=== PATIENT | male | born 1980 | race Caucasian/White ===

== ENCOUNTER 2019-01-13 06:23 | Day surgery (SDC) | payer OTHER ==
[2019-01-13] MEDS: CEFAZOLIN 2 GM/50 ML (PMX) 50 ML IVPB (07:00)
[2019-01-13] MEDS: SOD CHLORIDE 0.9% 1,000 ML IV (08:03)
[2019-01-13] MEDS: ACETAMINOPHEN 500 MG TAB PO (08:03)
[2019-01-13 08:23] LABS: ADD MAN DIFF? NO
[2019-01-13] MEDS ORDERED: FAMOTIDINE 20 MG INJ (08:25)
[2019-01-13] MEDS ORDERED: CEFAZOLIN 1 GM INJ (08:25)
[2019-01-13] MEDS ORDERED: PROPOFOL 40 ML (08:25)
[2019-01-13] MEDS ORDERED: ONDANSETRON 4 MG INJ (08:25)
[2019-01-13] MEDS ORDERED: FENTAnyl 50 MCG/ML VIAL (08:25)
[2019-01-13] MEDS ORDERED: ROCURONIUM 50 MG INJ (08:25)
[2019-01-13] MEDS ORDERED: MIDAZOLAM 1 MG/ML 2 ML INJ (08:25)
[2019-01-13] MEDS ORDERED: LIDOCAINE 2% (SDV) 5 ML INJ (08:25)
[2019-01-13 08:26] LABS: WHITE BLOOD COUNT 5.2 10^3/ul (4.8-10.8)
[2019-01-13 08:26] LABS: BASOPHILS % 0.6 % (0.0-2.0); EOSINOPHILS # 0.1 10^3/ul (0.0-0.5); EOSINOPHILS % 1.2 % (0.0-7.0); HEMATOCRIT 38.5 % (42.0-52.0); HEMOGLOBIN 12.3 g/dl (14.0-18.0); LYMPHOCYTES # 1.3 10^3/ul (0.8-2.9); LYMPHOCYTES % 25.8 % (15.0-51.0); MEAN CORPUSCULAR HEMOGLOBIN 28.5 pg (29.0-33.0); MEAN CORPUSCULAR HGB CONC 31.9 g/dl (32.0-37.0); MEAN CORPUSCULAR VOLUME 89.3 fl (82.0-101.0); MEAN PLATELET VOLUME 10.7 fl (7.4-10.4); MONOCYTE # 0.6 10^3/ul (0.3-0.9); MONOCYTES % 12.4 % (0.0-11.0); NEUTROPHIL # 3.1 10^3/ul (1.6-7.5); PLATELET COUNT 243 10^3/UL (140-415); RED BLOOD COUNT 4.31 10^6/ul (4.70-6.10)
[2019-01-13 08:31] LABS: INR 0.95; PROTIME 12.8 Sec (11.9-14.9)
[2019-01-13 08:32] LABS: PARTIAL THROMBOPLASTIN TIME 31.8 Sec (23.0-35.0)
[2019-01-13 08:34] LABS: ALANINE AMINOTRANSFERASE 29 IU/L (13-69); ALBUMIN 4.1 g/dl (3.3-4.9); ALBUMIN/GLOBULIN RATIO 1.28; ALKALINE PHOSPHATASE 73 IU/L (42-121); ANION GAP 7 (5-13); ASPARTATE AMINO TRANSFERASE 22 IU/L (15-46); BILIRUBIN,INDIRECT 0.6 mg/dl (0-1.1); BILIRUBIN,TOTAL 0.6 mg/dl (0.2-1.3); BLOOD UREA NITROGEN 8 mg/dl (7-20); CALCIUM 9.1 mg/dl (8.4-10.2); CARBON DIOXIDE 30 mmol/L (21-31); CHLORIDE 102 mmol/L (97-110); CREATININE 0.88 mg/dl (0.61-1.24); Estimated GFR > 60 mL/min (>60); GLUCOSE 96 mg/dl (70-220); POTASSIUM 3.9 mmol/L (3.5-5.1); SODIUM 139 mmol/L (135-144); TOTAL PROTEIN 7.3 g/dl (6.1-8.1)
[2019-01-13] MEDS ORDERED: BUPIVACAINE 0.5%/EPI (SDV) 30 ML INJ (09:13)
[2019-01-13] MEDS ORDERED: SUGAMMADEX SODIUM 200 MG/2 ML VIAL IV (10:11)
[2019-01-13] MEDS: LIDOCAINE 1%/EPI 30 ML INJ (10:21)
[2019-01-13] MEDS: BUPIVACAINE 0.25%/EPI (SDV) 10 ML INJ (10:21)
[2019-01-13] MEDS ORDERED: MUPIROCIN 2% 15 GM CR (10:27)
[2019-01-13] MEDS ORDERED: BACITRACIN/POLYMYXIN 28.35 GM OINT TOP (10:28)
[2019-01-13] MEDS ORDERED: HYDROmorphONE 1 MG/5 ML IV SYRINGE IV ×3 (10:30)
[2019-01-13] MEDS ORDERED: hydrALAzine 20 MG INJ IV (10:30)
[2019-01-13] MEDS ORDERED: morphine 2 MG INJ IV ×3 (10:30→11:30)
[2019-01-13] MEDS ORDERED: DIPHENHYDRAMINE 50 MG INJ IV (10:30)
[2019-01-13] MEDS ORDERED: EPHEDrine 25 MG/5 ML SYG IV (10:30)
[2019-01-13] MEDS ORDERED: LABETALOL HCL 20MG INJ IV (10:30)
[2019-01-13] MEDS ORDERED: ALBUTEROL 0.083% (NEB) 2.5 MG/3 ML AMP HHN (10:30)
[2019-01-13] MEDS ORDERED: FENTAnyl 50 MCG/ML VIAL IV ×2 (10:30)
[2019-01-13] MEDS ORDERED: OXYCODONE/ACETAMINOPHEN (5/325) TAB PO ×2 (10:30)
[2019-01-13] MEDS ORDERED: EPHEDrine 25 MG/5 ML SYG (10:33)
[2019-01-13] MEDS ORDERED: KETOROLAC 30 MG INJ (10:33)
[2019-01-13] MEDS ORDERED: LACTATED RINGER'S 1,000 ML IV (11:17)
[2019-01-13] MEDS: ONDANSETRON 4 MG INJ IV (11:27)
[2019-01-13] MEDS: MEPERIDINE 25 MG INJ IV (11:27)
[2019-01-13] MEDS ORDERED: HYDROCODONE/APAP (5/325) TAB PO (11:30)
[2019-01-13] MEDS ORDERED: ONDANSETRON 4 MG INJ IV (11:30)
== END 2019-01-13 12:40 | disposition home or self-care (01) ==
LOC: SDS 06:23
DX: L05.91 Pilonidal cyst without abscess (principal)
CPT/HCPCS: 11772; 80053; 85025; 85610; 85730; 88304